=== PATIENT | female | born 1985 | race Caucasian/White ===

== ENCOUNTER 2021-03-28 13:54 | Emergency (ER) | payer OTHER, SELFPAY ==
--- NOTE | ~2021-03-28 | XR_ITS ---
EXAMINATION: XR chest 2V EXAM DATE: 03/28/2021 15:00 INDICATION: Shortness of breath, cough, symptoms for days. History of prior COVID infection. TECHNIQUE: Frontal and lateral projections of the chest obtained and reviewed. There is no prior eliazar dy for comparison. FINDINGS: The lungs are clear. There are no pleural effusions. The cardiomediastinal silhouette is within normal limits. There is no pneumothorax suspected. The bones and soft tissues are unremarkab le. IMPRESSION: Unremarkable chest x-ray exam. Reviewed, dictated and finalized at location A.
[2021-03-28 14:08] VITALS: BP 108/67; PULSE 88; RESP 20; TEMP 36.6; O2SAT 99
[2021-03-28] MEDS: ALBUTEROL SULFATE NEB 2.5 MG/3 ML INH INHALATION (15:02)
[2021-03-28] MEDS: IPRATROPIUM BR 0.02% INH SOLN 0.5 MG/2.5 ML VIAL INHALATION (15:02)
[2021-03-28 15:30] VITALS: PULSE 80; RESP 20; O2SAT 99
--- NOTE | 2021-03-28 15:33 | ED.URI ---
HPI - URI/Sore Throat General Chief Complaint: Upper Respiratory Infection Stated Complaint: Flu sx Time Seen by Provider: 03/28/21 14:40 Source: patient and RN notes reviewed Mode of arrival: ambulatory Limitations: no limitations History of Present Illness HPI Narrative: Patient presents today with a 4-day history of headache, body aches, sore throat, postnasal drip, fatigue, cough with shortness of breath and wheezing, chills. 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 Denies fever. History of bronchitis and asthma after she had COVID-19. She does use an inhaler and has been using it without much relief. MD elicited complaint: cough Related Data Home Medications Medication Instructions Recorded Confirmed bupropion HCl 100 mg PO BID 03/28/21 03/28/21 bupropion HCl 200 mg PO DAILY 03/28/21 03/28/21 fluvoxamine 100 mg PO BID 03/28/21 03/28/21 Allergies Allergy/AdvReac Type Severity Reaction Status Date / Time No Known Allergies Allergy Verified 03/28/21 14:38 Review of Systems Review of Systems: CONSTITUTIONAL: Denies fever, or sweats. + Body aches, chills, fatigue EYES: Denies visual changes, redness, or discharge. ENT: Denies rhinorrhea, , or otalgia.+ Sore throat, postnasal drip CARDIOVASCULAR: Denies chest pain, palpitations, or edema. RESPIRATORY: + Cough, wheezing, shortness of breath GASTROINTESTINAL: Denies abdominal pain, nausea, vomiting, or diarrhea. GENITOURINARY: Denies dysuria or hematuria. SKIN: Denies rash, itching, or wounds. MUSCULOSKELETAL: Denies back pain, joint pain, or myalgia. NEUROLOGIC: Denies numbness, tingling, or weakness.+ Headache PSYCH: Denies depression or anxiety. [facility] Past Medical History Medical History (Updated 03/28/21 @ 15:42 by Barbie Blankenship, [employer], ) Asthma COVID-19 COVID-19 roger ricci Comments At time of signature, I have reviewed and agree with nursing past medical, surgical, social and family history unless otherwise noted. Please see nursing chart for further information. There is no relevant family history pertinent to the presenting complaint Exam Narrative: GENERAL: Mild-appearing, well-nourished, and in no acute distress. HEAD: Normocephalic, atraumatic. EYES: EOMI. No redness or drainage. Conjunctivae normal. ENT: Mucous membranes pink and moist. Nares clear. No rhinorrhea. TMs normal bilaterally. Throat normal. Uvula midline. NECK: Normal AROM. Supple. No lymphadenopathy. CHEST: No respiratory distress. Clear to auscultation. HEART: Regular rate and rhythm. No murmur appreciated. Normal peripheral pulses. EXTREMITIES: Normal range of motion. No edema. SKIN: Warm, dry, no rash. Capillary refill normal. Normal skin turgor. NEURO: No focal deficits. Alert and oriented x3. Gait steady. PSYCH: Normal affect. No signs of depression or anxiety. Course Course Emergency Course: Patient states she is feeling much better and can take deeper breaths after DuoNeb Vital Signs Vital signs: Vital Signs Temperature 97.8 F 03/28/21 14:08 Pulse Rate 88 03/28/21 14:08 Respiratory Rate 20 03/28/21 14:08 Blood Pressure 108/67 03/28/21 14:08 Pulse Oximetry 99 03/28/21 14:08 Temperature 97.8 F 03/28/21 14:08 Pulse Rate 88 03/28/21 14:08 Respiratory Rate 20 03/28/21 14:08 Blood Pressure 108/67 03/28/21 14:08 Pulse Oximetry 99 03/28/21 14:08 Reviewed MDM - URI/Sore Throat Differential Diagnosis Differential diagnosis: Likely upper respiratory infection, viral infection, bronchitis, influenza and other (COVID-19, strep throat) Lab Data Attestation: I reviewed the patient's lab results. Lab results narrative: Rapid COVID-19 negative Labs: Influenza A Screen Negative Reference Range: Negative Influenza A Screen Negative Reference Range: Negative Influenz
== END 2021-03-28 15:55 | disposition home or self-care (01) ==
PROVIDERS: Emergency Provider Nurse Practitioner
DX: J06.9 Acute upper respiratory infection, unspecified (principal); J40 Bronchitis, not specified as acute or chronic; Z20.822 Contact with and (suspected) exposure to COVID-19; J45.909 Unspecified asthma, uncomplicated; Z86.16 Personal history of COVID-19
CPT/HCPCS: 71046; 87081; 87426; 87804; 87880; 99213; C9803; G0463

== ENCOUNTER 2021-05-04 15:44 | Emergency (ER) | payer OTHER, SELFPAY ==
--- NOTE | 2021-05-04 15:48 | ED.URI ---
HPI - URI/Sore Throat General Chief Complaint: Upper Respiratory Infection Stated Complaint: mono Time Seen by Provider: 05/04/21 15:48 Source: patient and RN notes reviewed History of Present Illness HPI Narrative: Patient is a 35-year-old female who presents the urgent care with complaints of possible mono. Patient states that for the last week she has felt slightly fatigued, with intermittent nausea, right upper quadrant pain and sore throat/neck pain. 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 Denies of any known fevers. Denies of vomiting. States that she has been taking Advil for her symptoms. Patient has had her Covid vaccination. No other acute complaints. No acute distress noted. Patient read the plan of care. Some parts of this dictation were generated by voice recognition software and may contain typographical and/or grammatical inaccuracies. Related Data Home Medications Medication Instructions Recorded Confirmed fluvoxamine 100 mg PO BID 03/28/21 03/28/21 albuterol sulfate See Rx Instructions .ROUTE 05/04/21 05/04/21 .COMPLEX PRN bupropion HCl 200 mg PO DAILY 05/04/21 05/04/21 Allergies Allergy/AdvReac Type Severity Reaction Status Date / Time No Known Allergies Allergy Verified 05/04/21 15:53 Review of Systems Review of Systems: CONSTITUTIONAL: Denies fever, chills, or sweats. reports of fatique EYES: Denies visual changes, redness, or discharge. ENT: Denies rhinorrhea, congestion, otalgia. Reports of sore throat and neck pain CARDIOVASCULAR: Denies chest pain, palpitations, or edema. RESPIRATORY: Denies cough or dyspnea. GASTROINTESTINAL: Reports of left upper abdominal pain/tenderness and intermittent nausea GENITOURINARY: Denies dysuria or hematuria. SKIN: Denies rash or itching. MUSCULOSKELETAL: Denies back pain, joint pain, or myalgia. NEUROLOGIC: Denies headache, numbness, or weakness. All other systems reviewed are negative, except as documented in HPI. [facility] Past Medical History Medical History (Updated 05/04/21 @ 16:23 by YOLANDA Turcios) Asthma COVID-19 COVID-19 roger ricci Comments At the time of my signature, I reviewed and agree with the nursing past medical, surgical, social, and family history. There is no relevant family history pertinent to the patient complaint. Exam Narrative: GENERAL: This is a well-nourished, well-developed patient, in no apparent distress. HEAD: normocephalic, atraumatic. EYES: PERRL. Sclera clear/white. Vision is grossly intact. EARS: External ears normal, auditory canals clear and without drainage, TMs normal without perforation. Hearing grossly intact. NOSE: External nose normal with no obvious nasal discharge, nares without redness, no rhinorrhea. THROAT: Mucous membranes moist, posterior pharynx clear. NECK: Neck supple, mild bilateral tender submandibular lymphadenopathy CARDIOVASCULAR: Regular rate and rhythm without murmurs, gallops, or rubs. RESPIRATORY: Clear to auscultation. Breath sounds equal bilaterally. No wheezes, rales, or rhonchi. GASTROINTESTINAL: Abdomen soft, mild left upper quadrant tenderness, nondistended. Bowel sounds are active. No guarding. SKIN: warm, intact with no suspicious lesions or rash, good texture and turgor. NEURO: awake, alert, and oriented to person, place and time. There were no obvious focal neurologic abnormalities. EXTREMITIES: No clubbing, cyanosis, or edema. Course Vital Signs Vital signs: Vital Signs Temperature 97.8 F 05/04/21 15:50 Pulse Rate 83 05/04/21 15:50 Respiratory Rate 18 05/04/21 15:50 Blood Pressure 118/58 L 05/04/21 15:50 Pulse Oximetry 99 05/04/21 15:50 Temperature 97.8 F 05/04/21 15:50 Pulse Rate 83 05/04/21 15:50 Respiratory Rate 18 05/04/21 15:50 Blood Pressure 118/58 L 05/04/21 15:50 Pulse Oximetry 99 05/04/21 15:50 Reviewed MDM - URI/Sore Throat MDM Narrative Medical decision making narra
[2021-05-04 15:50] VITALS: BP 118/58; PULSE 83; RESP 18; TEMP 36.6; O2SAT 99
== END 2021-05-04 16:25 | disposition home or self-care (01) ==
PROVIDERS: Emergency Provider Nurse Practitioner Family
DX: Z20.828 Contact with and (suspected) exposure to other viral communicable diseases (principal); J45.909 Unspecified asthma, uncomplicated; Z86.16 Personal history of COVID-19
CPT/HCPCS: 36416; 86308; 87081; 87880; 99213; G0463